=== PATIENT | female | born 1945 | race Asian ===

== ENCOUNTER 2016-05-07 07:14 | Day surgery (SDC) | payer MEDICARE, OTHER ==
[~2016-05-07] VITALS: Ht 154.9 cm; Wt 47.3 kg
[~2016-05-07 07:14] MED LIST: ASPI-1093 PO; ATOR20TA86 PO; CHOL200018 PO; ESCI10TA PO; LEVO25TA9 PO; MONT10TA21 PO; PREG25 PO; SITA1TBM PO
[2016-05-07] MEDS ORDERED: RINGERS SOLUTION,LACTATED 500 ML IV ONE ×2 (07:30→14:20)
[2016-05-07] MEDS ORDERED: BESIFLOXACIN HCL 0.6% 5 ML OPHTHALMIC SUSPENSION OS ONE (07:30)
[2016-05-07] MEDS ORDERED: DICLOFENAC SODIUM 0.1% 2.5 ML OPHTHALMIC SOLUTION OS ONE (07:30)
[2016-05-07 07:51] LABS: GLUCOSE,POINT OF CARE 86 MG/DL (70-110)
[2016-05-07] MEDS: TROPICAMIDE 1% 2 ML OPHTHALMIC SOLUTION OS SCH ×2 (07:55→08:02)
[2016-05-07] MEDS: PHENYLEPHRINE HCL 2.5% 2 ML OPHTHALMIC SOLUTION OS SCH ×2 (07:56→08:02)
[2016-05-07] MEDS ORDERED: MIDAZOLAM HCL 2 MG/2 ML VIAL IVP ONE (12:00)
[2016-05-07] MEDS ORDERED: FentaNYL CITRATE-PF 100 MCG/2 ML VIAL IVP ONE (12:00)
[2016-05-07] MEDS ORDERED: DICLOFENAC SODIUM 0.1% 2.5 ML OPHTHALMIC SOLUTION ONE (14:20)
[2016-05-07] MEDS ORDERED: BESIFLOXACIN HCL 0.6% 5 ML OPHTHALMIC SUSPENSION ONE (14:20)
[2016-05-07] MEDS ORDERED: TROPICAMIDE 1% 2 ML OPHTHALMIC SOLUTION ONE (14:20)
[2016-05-07] MEDS ORDERED: PHENYLEPHRINE HCL 2.5% 2 ML OPHTHALMIC SOLUTION ONE (14:20)
[2016-05-07] MEDS ORDERED: TETRACAINE HCL VISCOUS 0.5% 0.6 ML OPHTHALMIC SOLUTION OS ONE (16:58)
[2016-05-07] MEDS ORDERED: HYALURONATE SODIUM 12 MG/ML 0.8 ML SYRINGE IO ONE (16:58)
[2016-05-07] MEDS ORDERED: HYALURONATE SOD/CHONDROITIN SOD 0.5 ML VIAL IO ONE (16:58)
[2016-05-07] MEDS ORDERED: POVIDONE-IODINE 10% 15 ML SOLUTION UD TP ONE (16:58)
[2016-05-07] MEDS ORDERED: DEXAMETHASONE SOD PHOS 4 MG/ML VIAL IVP ONE (16:58)
[2016-05-07] MEDS ORDERED: LIDOCAINE HCL/PF 1% 2 ML VIAL IM ONE (16:58)
== END 2016-05-07 12:25 | disposition home or self-care (01) ==
LOC: SURGERY 07:14
PROVIDERS: ATTEND Specialist
DX: E11.36 Type 2 diabetes mellitus with diabetic cataract (principal); H25.012 Cortical age-related cataract, left eye; I10 Essential (primary) hypertension; E78.00 Pure hypercholesterolemia, unspecified; J45.909 Unspecified asthma, uncomplicated; G43.909 Migraine, unspecified, not intractable, without status migrainosus; M19.90 Unspecified osteoarthritis, unspecified site; M54.2 Cervicalgia; F32.9 Major depressive disorder, single episode, unspecified; F17.200 Nicotine dependence, unspecified, uncomplicated; Z98.890 Other specified postprocedural states
CPT/HCPCS: 66984; 82962; 93005; C1780; J1100; J2250; J3010; J3490 ×2; J7120

== ENCOUNTER 2016-07-09 05:55 | Day surgery (SDC) | payer MEDICARE, OTHER ==
[~2016-07-09] VITALS: Ht 157.5 cm; Wt 48.0 kg
[~2016-07-09 05:55] MED LIST changes: +FentaNYL CITRATE-PF 100 MCG/2 ML VIAL IVP ONE; +MIDAZOLAM HCL 2 MG/2 ML VIAL IVP ONE
[2016-07-09] MEDS ORDERED: DICLOFENAC SODIUM 0.1% 2.5 ML OPHTHALMIC SOLUTION ONE (06:09)
[2016-07-09] MEDS ORDERED: TROPICAMIDE 1% 2 ML OPHTHALMIC SOLUTION ONE (06:09)
[2016-07-09] MEDS ORDERED: RINGERS SOLUTION,LACTATED 500 ML IV ONE ×2 (06:09→06:30)
[2016-07-09] MEDS ORDERED: MOXIFLOXACIN HCL 0.5% 3 ML OPHTHALMIC SOLUTION ONE (06:09)
[2016-07-09] MEDS ORDERED: PHENYLEPHRINE HCL 2.5% 2 ML OPHTHALMIC SOLUTION ONE (06:09)
[2016-07-09] MEDS ORDERED: UMEC62.5 IH (06:30)
[2016-07-09] MEDS ORDERED: FLUT16H NASAL (06:30)
[2016-07-09] MEDS ORDERED: MOXIFLOXACIN HCL 0.5% 3 ML OPHTHALMIC SOLUTION OD ONE (06:30)
[2016-07-09] MEDS ORDERED: DICLOFENAC SODIUM 0.1% 2.5 ML OPHTHALMIC SOLUTION OD ONE (06:30)
[2016-07-09] MEDS ORDERED: FLUT1BLS PO (06:30)
[2016-07-09] MEDS ORDERED: METO-323 PO (06:30)
[2016-07-09] MEDS ORDERED: MULT-71 PO (06:31)
[2016-07-09 06:57] LABS: GLUCOSE,POINT OF CARE 90 MG/DL (70-110)
[2016-07-09] MEDS: TROPICAMIDE 1% 2 ML OPHTHALMIC SOLUTION OD SCH ×2 (07:00→07:07)
[2016-07-09] MEDS: PHENYLEPHRINE HCL 2.5% 2 ML OPHTHALMIC SOLUTION OD SCH ×2 (07:01→07:07)
[2016-07-09] MEDS ORDERED: AcetaZOLAMIDE 250 MG TABLET ONE (09:49)
[2016-07-09] MEDS ORDERED: AcetaZOLAMIDE 500 MG ER CAPSULE PO ONE (10:00)
[2016-07-09] MEDS ORDERED: ACETYLCHOLINE CHLORIDE 1 EA INTRAOCULAR SOLUTION KIT IO ONE (21:22)
[2016-07-09] MEDS ORDERED: POVIDONE-IODINE 10% 15 ML SOLUTION UD TP ONE (21:22)
[2016-07-09] MEDS ORDERED: LIDOCAINE HCL/PF 1% 2 ML VIAL IM ONE (21:22)
[2016-07-09] MEDS ORDERED: HYALURONATE SOD/CHONDROITIN SOD 0.5 ML VIAL IO ONE (21:22)
[2016-07-09] MEDS ORDERED: TETRACAINE HCL VISCOUS 0.5% 0.6 ML OPHTHALMIC SOLUTION OD ONE (21:22)
[2016-07-09] MEDS ORDERED: DEXAMETHASONE SOD PHOS 4 MG/ML VIAL IVP ONE (21:22)
[2016-07-09] MEDS ORDERED: HYALURONATE SODIUM 12 MG/ML 0.8 ML SYRINGE IO ONE (21:22)
== END 2016-07-09 10:30 | disposition home or self-care (01) ==
LOC: SURGERY 05:55
PROVIDERS: ATTEND Specialist
DX: H26.9 Unspecified cataract (principal); I10 Essential (primary) hypertension; E11.9 Type 2 diabetes mellitus without complications; M19.90 Unspecified osteoarthritis, unspecified site; E78.00 Pure hypercholesterolemia, unspecified
CPT/HCPCS: 66984; 82962; C1780; J1100; J2250; J3010; J3490 ×2; J7120; 99152; 99153

== ENCOUNTER 2019-08-29 12:49 | Emergency (ER) | payer MEDICARE, OTHER ==
[~2019-08-29] VITALS: Ht 154.9 cm; Wt 68.2 kg
[~2019-08-29 12:49] MED LIST changes: -ASPI-1093 PO; +ASPI-1111 PO; -CHOL200018 PO; +ESCI-8 PO; -ESCI10TA PO; +FLUT16H NASAL; +FLUT1BLS PO; -FentaNYL CITRATE-PF 100 MCG/2 ML VIAL IVP ONE; +METO25XL PO; -MIDAZOLAM HCL 2 MG/2 ML VIAL IVP ONE; +MULT-660 PO; +UMEC62.5 IH
[2019-08-29] MEDS ORDERED: ACETAMINOPHEN 500 MG TABLET PO ONE (13:15)
[2019-08-29] MEDS ORDERED: CIPROFLOXACIN HCL 0.2%/HYDROCORT 1% 10 ML OTIC SUSPENSION AS ONE (13:15)
[2019-08-29] MEDS ORDERED: OFLOXACIN 0.3% 5 ML OPHTHALMIC SOLUTION OS ONE (13:30)
[2019-08-29 14:20] VITALS: BP 129/82
== END 2019-08-29 14:38 | disposition home or self-care (01) ==
LOC: EMS 12:55
DX: H60.92 Unspecified otitis externa, left ear (principal); J45.909 Unspecified asthma, uncomplicated; E78.00 Pure hypercholesterolemia, unspecified; I10 Essential (primary) hypertension

== ENCOUNTER 2019-09-01 15:22 | Emergency (ER) | payer MEDICARE ==
[~2019-09-01] VITALS: Ht 160 cm; Wt 52.3 kg
[2019-09-01 16:01] LABS: GLUCOSE,POINT OF CARE 141 MG/DL (70-110)
[2019-09-01] MEDS: AMOX TR/POT CLAV 875 MG/125 MG TABLET PO ONE (16:13)
[2019-09-01 16:43] VITALS: BP 121/64
== END 2019-09-01 16:48 | disposition home or self-care (01) ==
LOC: EMS 15:22
DX: H60.92 Unspecified otitis externa, left ear (principal); H93.8X2 Other specified disorders of left ear; J45.909 Unspecified asthma, uncomplicated; E78.00 Pure hypercholesterolemia, unspecified; I10 Essential (primary) hypertension

== ENCOUNTER 2021-10-30 19:34 | Emergency (ER) | payer MEDICARE ==
[~2021-10-30] VITALS: Ht 154.9 cm; Wt 40.9 kg
[~2021-10-30 19:34] MED LIST changes: -ASPI-1111 PO; +ASPI-1444 PO; +MONT-35 PO; -MONT10TA21 PO
[2021-10-30] MEDS ORDERED: PERTUSS(ACELL),DIPH,TET VAC/PF 0.5 ML SYRINGE IM. ONE (20:45)
[2021-10-30] MEDS ORDERED: AMOX TR/POT CLAV 500 MG/125 MG TABLET PO ONE (20:45)
[2021-10-30] MEDS ORDERED: AMOX1TAB15 PO (20:54)
[2021-10-30 20:57] VITALS: BP 127/80
[2021-10-30 21:12] LABS: GLUCOSE,POINT OF CARE 126 MG/DL (70-110)
== END 2021-10-30 21:08 | disposition home or self-care (01) ==
LOC: EMS 19:39
DX: S91.051A Open bite, right ankle, initial encounter (principal); E11.9 Type 2 diabetes mellitus without complications; E03.9 Hypothyroidism, unspecified; E78.00 Pure hypercholesterolemia, unspecified; F17.210 Nicotine dependence, cigarettes, uncomplicated; I10 Essential (primary) hypertension; J45.909 Unspecified asthma, uncomplicated; W55.01XA Bitten by cat, initial encounter; Y93.89 Activity, other specified; Y92.89 Other specified places as the place of occurrence of the external cause; Y99.8 Other external cause status
CPT/HCPCS: 82948; 82962; 90471; 90715; 99283

== ENCOUNTER 2021-11-04 17:32 | Emergency (ER) | payer MEDICARE ==
[~2021-11-04] VITALS: Ht 160 cm; Wt 56.8 kg
[~2021-11-04 17:32] MED LIST changes: +AMOX1TAB15 PO
[2021-11-04] MEDS ORDERED: IPRA3AMP24 NEB (18:28)
[2021-11-04] MEDS ORDERED: TIOT4MIS3 IH (18:28)
[2021-11-04] MEDS ORDERED: ALBU8HFA IH (18:28)
[2021-11-04] MEDS ORDERED: LINA5TAB PO (18:28)
[2021-11-04] MEDS ORDERED: METF-1211 PO (18:28)
[2021-11-04] MEDS ORDERED: AMOX TR/POT CLAV 875 MG/125 MG TABLET PO ONE (19:00)
[2021-11-04] MEDS ORDERED: KETOROLAC TROMETHAMINE 30 MG/ML VIAL IM ONE (19:00)
[2021-11-04] MEDS ORDERED: AMOX1TAB16 PO (19:22)
[2021-11-04] MEDS ORDERED: IBUP-2070 PO (19:22)
[2021-11-04 19:46] VITALS: BP 125/70
== END 2021-11-04 19:48 | disposition home or self-care (01) ==
LOC: EMS 17:32
DX: S81.851A Open bite, right lower leg, initial encounter (principal); L03.115 Cellulitis of right lower limb; I10 Essential (primary) hypertension; E11.9 Type 2 diabetes mellitus without complications; E78.00 Pure hypercholesterolemia, unspecified; E03.9 Hypothyroidism, unspecified; F17.210 Nicotine dependence, cigarettes, uncomplicated; J45.909 Unspecified asthma, uncomplicated; Z79.899 Other long term (current) drug therapy; W55.01XA Bitten by cat, initial encounter; Y93.89 Activity, other specified; Y92.89 Other specified places as the place of occurrence of the external cause; Y99.8 Other external cause status
CPT/HCPCS: 99283; 96372; J1885

== ENCOUNTER → 2022-04-02 | Outpatient (CLI) | payer MEDICARE ==
[~2022-04-02] MED LIST changes: +ALBU8HFA IH; -AMOX1TAB15 PO; +AMOX1TAB16 PO; -FLUT1BLS PO; +IBUP-1492 PO; +IPRA3AMP24 NEB; +LINA5TAB PO; +MELA5TAB40 PO; +METF-1211 PO; -SITA1TBM PO; +TIOT4MIS3 IH; -UMEC62.5 IH
== END | disposition home or self-care (01) ==
LOC: RADPV 12:54
PROVIDERS: ATTEND Internal Medicine Cardiovascular Disease
DX: I35.1 Nonrheumatic aortic (valve) insufficiency (principal); I50.1 Left ventricular failure, unspecified
CPT/HCPCS: 93306